=== PATIENT | female | born 1945 | race Caucasian/White ===

== ENCOUNTER 2023-08-25 10:42 | Inpatient (IN) ==
[2023-08-25] MEDS ORDERED: ONDANSETRON 4 MG/2 ML VIAL IV ONE (11:08)
[2023-08-25] MEDS ORDERED: LACTATED RINGERS 1,000 ML IV ONE ×3 (11:08→14:28)
[2023-08-25 11:21] LABS: POC Calcium, Ionized 1.06 (1.16-1.32); POC Creatinine 2.4 (0.6-1.2); POC Potassium 3.9 (3.3-5.1)
[2023-08-25 12:46] LABS: Basophils # (Auto) 0.01 K/mcL (0.00-0.30); Basophils % (Auto) 0.4 % (0.0-2.0); Eosinophils % (Auto) 3.6 % (0.0-7.0); Hematocrit 44.8 % (34.1-44.9); Hemoglobin 15.6 g/dL (11.2-15.7); Lymphocytes # (Auto) 0.24 K/mcL (1.50-4.80); Lymphocytes % (Auto) 8.7 % (15.5-49.0); Mean Cell Volume 89.2 fL (80.0-100.0); Mean Corpuscular HGB Conc 34.8 g/dL (31.0-36.0); Mean Platelet Volume 10.6 fL (8.8-12.5); Monocytes # (Auto) 0.08 K/mcL (0.10-0.90); Monocytes % (Auto) 2.9 % (1.0-12.0); Neutrophils % (Auto) 83.7 % (38.0-78.0); Platelet Count 84 K/mcL (140-440); RBC 5.02 M/mcL (3.59-5.38); WBC 2.8 K/mcL (4.5-11.0)
[2023-08-25 14:07] LABS: ALT/SGPT 46 U/L (<40); AST/SGOT 142 U/L (<32); Alkaline Phosphatase 90 U/L (39-117); Bilirubin,Total 0.6 mg/dL (0.1-1.0); Blood Urea Nitrogen 33 mg/dL (8-23); Calcium 8.3 mg/dL (8.6-10.4); Carbon Dioxide 22 mmol/L (22-30); Chloride 94 mmol/L (96-108); Glomerular Filtration Rate 22; Glucose 100 mg/dL (70-105)
[2023-08-25] MEDS ORDERED: cefTRIAXone 2 GM in DEXTROSE 5% IN WATER 50 ML IV ONE (16:25)
[2023-08-25 17:14] LABS: Appearance,Urine CLEAR (Clear); Bilirubin,Urine Negative (Negative); Color,Urine YELLOW; Culture Indicated,Urine No; Glucose,Urine (UA) Negative (Negative); Ketones,Urine 20 mg/dL (Negative); Leukocyte Esterase,Urine Negative /uL (Negative); Nitrate,Urine Negative (Negative); Protein,Urine Negative (Negative); Specific Gravity,Urine 1.018 (1.000-1.035); Urine Blood Negative (Negative); Urobilinogen,Urine Negative
[2023-08-25] MEDS ORDERED: oxyCODONE IR 5 MG TABLET PO PRN (17:53)
[2023-08-25] MEDS ORDERED: morphine 4 MG/ML VIAL IV PRN (17:53)
[2023-08-25] MEDS ORDERED: ONDANSETRON 4 MG/2 ML VIAL IV PRN (17:53)
[2023-08-25] MEDS ORDERED: VANCOMYCIN PER PHARMACY IV ONE (17:53)
[2023-08-25] MEDS ORDERED: traZODone HCL 50 MG TABLET PO PRN (17:53)
[2023-08-25] MEDS ORDERED: ACETAMINOPHEN 325 MG TABLET PO PRN (17:53)
[2023-08-25] MEDS ORDERED: ALBUTEROL SULFATE 60 PUFF INHALER INH PRN (19:41)
[2023-08-25] MEDS ORDERED: VANCOMYCIN 1,250 MG in 0.9 % SODIUM CHLORIDE 500 ML IV SCH (20:00)
[2023-08-25] MEDS: 0.9 % SODIUM CHLORIDE 1,000 ML IV SCH (20:07)
[2023-08-25] MEDS: 0.9 % SODIUM CHLORIDE 10 ML SYRINGE IV SCH (21:40)
[2023-08-25] MEDS: HEPARIN 5,000 UNIT/ML VIAL SQ SCH (21:40)
[2023-08-25] MEDS: ATORVASTATIN 20 MG TABLET PO SCH (21:40)
[2023-08-25] MEDS: MEROPENEM 1 GM in 0.9 % SODIUM CHLORIDE 50 ML IV SCH (21:42)
[2023-08-26] MEDS: IPRATROPIUM/ALBUTEROL 3 ML AMPUL.NEB NEB PRN ×2 (01:28→22:04)
[2023-08-26] MEDS: 0.9 % SODIUM CHLORIDE 1,000 ML IV SCH ×2 (05:08→16:10)
[2023-08-26] MEDS: MEROPENEM 1 GM in 0.9 % SODIUM CHLORIDE 50 ML IV SCH ×3 (05:08→20:58)
[2023-08-26] MEDS: 0.9 % SODIUM CHLORIDE 10 ML SYRINGE IV SCH ×3 (05:10→20:59)
[2023-08-26] MEDS: OMEPRAZOLE 20 MG CAPSULE PO SCH (07:10)
[2023-08-26 07:41] LABS: ALT/SGPT 38 U/L (<40); AST/SGOT 118 U/L (<32); Albumin 2.2 gm/dL (3.2-5.2); Alkaline Phosphatase 70 U/L (39-117); Bilirubin,Total 0.4 mg/dL (0.1-1.0); Blood Urea Nitrogen 28 mg/dL (8-23); Calcium 7.5 mg/dL (8.6-10.4); Carbon Dioxide 21 mmol/L (22-30); Chloride 100 mmol/L (96-108); Globulin 2.3 gm/dL (2.2-3.7); Glomerular Filtration Rate 32; Glucose 74 mg/dL (70-105)
[2023-08-26] MEDS: ASPIRIN 81 MG TAB.CHEW PO SCH (08:13)
[2023-08-26] MEDS ORDERED: BISOPROLOL/HCTZ 5MG 1 TABLET PO SCH (09:00)
[2023-08-26] MEDS ORDERED: B COMPLEX BIOTIN FA PO SCH (09:00)
[2023-08-26] MEDS ORDERED: BISOPROLOL 5 MG TABLET PO SCH (09:00)
[2023-08-26] MEDS: HYDROCHLOROTHIAZIDE 25 MG TABLET PO SCH (09:52)
[2023-08-26] MEDS: HEPARIN 5,000 UNIT/ML VIAL SQ SCH (09:55)
[2023-08-26 10:21] LABS: Basophils # (Auto) 0.01 K/mcL (0.00-0.30); Basophils % (Auto) 1.3 % (0.0-2.0); Eosinophils # (Auto) 0.11 K/mcL (0.00-0.70); Eosinophils % (Auto) 14.7 % (0.0-7.0); Hematocrit 36.7 % (34.1-44.9); Hemoglobin 12.7 g/dL (11.2-15.7); Lymphocytes # (Auto) 0.25 K/mcL (1.50-4.80); Lymphocytes % (Auto) 33.3 % (15.5-49.0); Mean Cell Volume 89.3 fL (80.0-100.0); Mean Corpuscular HGB Conc 34.6 g/dL (31.0-36.0); Monocytes # (Auto) 0.06 K/mcL (0.10-0.90); Neutrophils % (Auto) 41.4 % (38.0-78.0); Platelet Count 57 K/mcL (140-440); RBC 4.11 M/mcL (3.59-5.38); Red Cell Distribution Width 12.2 % (11.5-14.5); WBC 0.8 K/mcL (4.5-11.0)
[2023-08-26] MEDS: ATORVASTATIN 20 MG TABLET PO SCH (20:58)
[2023-08-27] MEDS: 0.9 % SODIUM CHLORIDE 1,000 ML IV SCH ×2 (03:29→13:41)
[2023-08-27] MEDS: 0.9 % SODIUM CHLORIDE 10 ML SYRINGE IV SCH ×3 (05:39→20:18)
[2023-08-27] MEDS: MEROPENEM 1 GM in 0.9 % SODIUM CHLORIDE 50 ML IV SCH ×3 (05:39→21:14)
[2023-08-27] MEDS: OMEPRAZOLE 20 MG CAPSULE PO SCH (07:27)
[2023-08-27 08:08] LABS: Basophils # (Auto) 0.05 K/mcL (0.00-0.30); Basophils % (Auto) 2.3 % (0.0-2.0); Eosinophils # (Auto) 0.24 K/mcL (0.00-0.70); Hematocrit 38.2 % (34.1-44.9); Hemoglobin 13.1 g/dL (11.2-15.7); Lymphocytes # (Auto) 1.25 K/mcL (1.50-4.80); Mean Cell Volume 90.3 fL (80.0-100.0); Mean Corpuscular HGB Conc 34.3 g/dL (31.0-36.0); Mean Platelet Volume 11.5 fL (8.8-12.5); Monocytes # (Auto) 0.25 K/mcL (0.10-0.90); Monocytes % (Auto) 11.5 % (1.0-12.0); Platelet Count 53 K/mcL (140-440); RBC 4.23 M/mcL (3.59-5.38); Red Cell Distribution Width 12.2 % (11.5-14.5); WBC 2.2 K/mcL (4.5-11.0)
[2023-08-27 08:22] LABS: ALT/SGPT 42 U/L (<40); AST/SGOT 100 U/L (<32); Albumin 2.5 gm/dL (3.2-5.2); Albumin/Globulin Ratio 1.1 (1.0-2.3); Alkaline Phosphatase 86 U/L (39-117); Bilirubin,Total 0.4 mg/dL (0.1-1.0); Blood Urea Nitrogen 18 mg/dL (8-23); Calcium 7.8 mg/dL (8.6-10.4); Carbon Dioxide 24 mmol/L (22-30); Chloride 104 mmol/L (96-108); Globulin 2.2 gm/dL (2.2-3.7); Glomerular Filtration Rate 60; Glucose 81 mg/dL (70-105)
[2023-08-27] MEDS: HYDROCHLOROTHIAZIDE 25 MG TABLET PO SCH (08:34)
[2023-08-27] MEDS ORDERED: FLAX SEED OIL PO SCH (09:00)
[2023-08-27 11:09] LABS: Lymphocytes % (Auto) 57.3 % (15.5-49.0)
[2023-08-27] MEDS: SPIRONOLACTONE 25 MG TABLET PO SCH (11:50)
[2023-08-27] MEDS: ATORVASTATIN 20 MG TABLET PO SCH (21:14)
[2023-08-27] MEDS: IPRATROPIUM/ALBUTEROL 3 ML AMPUL.NEB NEB PRN (21:29)
[2023-08-28] MEDS: MEROPENEM 1 GM in 0.9 % SODIUM CHLORIDE 50 ML IV SCH ×3 (05:35→21:42)
[2023-08-28] MEDS: 0.9 % SODIUM CHLORIDE 10 ML SYRINGE IV SCH ×3 (06:22→22:30)
[2023-08-28 07:33] LABS: ALT/SGPT 46 U/L (<40); AST/SGOT 87 U/L (<32); Albumin 2.4 gm/dL (3.2-5.2); Albumin/Globulin Ratio 1.1 (1.0-2.3); Alkaline Phosphatase 86 U/L (39-117); Bilirubin,Total 0.4 mg/dL (0.1-1.0); Blood Urea Nitrogen 12 mg/dL (8-23); Calcium 7.8 mg/dL (8.6-10.4); Carbon Dioxide 25 mmol/L (22-30); Chloride 107 mmol/L (96-108); Globulin 2.2 gm/dL (2.2-3.7); Glomerular Filtration Rate 69; Glucose 92 mg/dL (70-105)
[2023-08-28] MEDS: ASPIRIN 81 MG TAB.CHEW PO SCH (08:03)
[2023-08-28] MEDS: OMEPRAZOLE 20 MG CAPSULE PO SCH (08:03)
[2023-08-28] MEDS: CALCIUM (OYSTER SHELL) 500 MG TABLET PO SCH (08:03)
[2023-08-28] MEDS: HYDROCHLOROTHIAZIDE 25 MG TABLET PO SCH (08:04)
[2023-08-28] MEDS: VITAMIN D3 25 MCG TABLET PO SCH (08:04)
[2023-08-28 09:17] LABS: Basophils # (Auto) 0.03 K/mcL (0.00-0.30); Basophils % (Auto) 0.5 % (0.0-2.0); Eosinophils # (Auto) 0.33 K/mcL (0.00-0.70); Eosinophils % (Auto) 5.4 % (0.0-7.0); Hematocrit 36.4 % (34.1-44.9); Hemoglobin 12.5 g/dL (11.2-15.7); Lymphocytes # (Auto) 4.92 K/mcL (1.50-4.80); Lymphocytes % (Auto) 80.7 % (15.5-49.0); Mean Cell Volume 90.3 fL (80.0-100.0); Mean Corpuscular HGB Conc 34.3 g/dL (31.0-36.0); Mean Platelet Volume 11.6 fL (8.8-12.5); Monocytes # (Auto) 0.41 K/mcL (0.10-0.90); Monocytes % (Auto) 6.7 % (1.0-12.0); Neutrophils % (Auto) 6.4 % (38.0-78.0); Platelet Count 52 K/mcL (140-440); RBC 4.03 M/mcL (3.59-5.38); Red Cell Distribution Width 12.3 % (11.5-14.5); WBC 6.1 K/mcL (4.5-11.0)
[2023-08-28] MEDS: POTASSIUM CHLORIDE 20 MEQ TABLET PO SCH (16:44)
[2023-08-28] MEDS: ATORVASTATIN 20 MG TABLET PO SCH (21:41)
[2023-08-29] MEDS: MEROPENEM 1 GM in 0.9 % SODIUM CHLORIDE 50 ML IV SCH ×2 (06:54→13:51)
[2023-08-29] MEDS: 0.9 % SODIUM CHLORIDE 10 ML SYRINGE IV SCH ×2 (06:58→13:52)
[2023-08-29 07:36] LABS: Basophils # (Auto) 0.05 K/mcL (0.00-0.30); Basophils % (Auto) 0.6 % (0.0-2.0); Eosinophils # (Auto) 0.32 K/mcL (0.00-0.70); Eosinophils % (Auto) 3.6 % (0.0-7.0); Hematocrit 37.1 % (34.1-44.9); Hemoglobin 12.9 g/dL (11.2-15.7); Lymphocytes # (Auto) 7.13 K/mcL (1.50-4.80); Mean Cell Volume 88.8 fL (80.0-100.0); Mean Corpuscular HGB Conc 34.8 g/dL (31.0-36.0); Mean Platelet Volume 11.3 fL (8.8-12.5); Monocytes # (Auto) 0.51 K/mcL (0.10-0.90); Monocytes % (Auto) 5.8 % (1.0-12.0); Neutrophils % (Auto) 8.6 % (38.0-78.0); Platelet Count 67 K/mcL (140-440); RBC 4.18 M/mcL (3.59-5.38); Red Cell Distribution Width 12.4 % (11.5-14.5); WBC 8.8 K/mcL (4.5-11.0)
[2023-08-29 08:05] LABS: ALT/SGPT 141 U/L (<40); AST/SGOT 249 U/L (<32); Albumin 2.5 gm/dL (3.2-5.2); Albumin/Globulin Ratio 1.1 (1.0-2.3); Alkaline Phosphatase 96 U/L (39-117); Bilirubin,Total 0.4 mg/dL (0.1-1.0); Blood Urea Nitrogen 10 mg/dL (8-23); Calcium 8.3 mg/dL (8.6-10.4); Carbon Dioxide 26 mmol/L (22-30); Chloride 105 mmol/L (96-108); Globulin 2.3 gm/dL (2.2-3.7); Glomerular Filtration Rate 82; Glucose 93 mg/dL (70-105)
[2023-08-29] MEDS: OMEPRAZOLE 20 MG CAPSULE PO SCH (08:27)
[2023-08-29] MEDS: VITAMIN D3 25 MCG TABLET PO SCH (08:27)
[2023-08-29] MEDS: POTASSIUM CHLORIDE 20 MEQ TABLET PO SCH (08:27)
[2023-08-29] MEDS: HYDROCHLOROTHIAZIDE 25 MG TABLET PO SCH (08:27)
[2023-08-29] MEDS: CALCIUM (OYSTER SHELL) 500 MG TABLET PO SCH (08:27)
[2023-08-29] MEDS ORDERED: LOSARTAN 50 MG TABLET PO SCH (09:00)
[2023-08-29 10:30] LABS: Lymphocytes % (Auto) 81.1 % (15.5-49.0)
[2023-08-29] MEDS: SPIRONOLACTONE 25 MG TABLET PO SCH (12:17)
== END 2023-08-29 17:15 | disposition home or self-care (01) | DRG 872 ==
LOC: ED 10:42 → MEDSUR 17:47
PROVIDERS: ADMIT Internal Medicine; ATTEND Internal Medicine